=== PATIENT | female | born 1940 | race African-American/Black ===

== ENCOUNTER 2018-09-26 17:27 | Emergency (ER) | payer MEDICAID, MEDICARE ==
[~2018-09-26] VITALS: Ht 170.2 cm; Wt 70.5 kg
[2018-09-26] MEDS ORDERED: METO25 PO (17:55)
[2018-09-26] MEDS ORDERED: ACETAMINOPHEN 500 MG TABLET PO ONE (18:00)
[2018-09-26] MEDS ORDERED: AmLODIPine BESYLATE 5 MG TABLET PO ONE (20:30)
[2018-09-26] MEDS ORDERED: KETOROLAC TROMETHAMINE 60 MG/2 ML VIAL IM ONE (20:30)
[2018-09-26 20:41] VITALS: BP 162/94
== END 2018-09-26 20:45 | disposition home or self-care (01) ==
LOC: EMS 17:27
DX: S93.602A Unspecified sprain of left foot, initial encounter (principal); I10 Essential (primary) hypertension; W54.1XXA Struck by dog, initial encounter; Y93.01 Activity, walking, marching and hiking; Y92.89 Other specified places as the place of occurrence of the external cause; Y99.8 Other external cause status
CPT/HCPCS: 73630; 96372; 99283; J1885

== ENCOUNTER 2018-11-19 11:14 | Emergency (ER) | payer MEDICAID ==
[~2018-11-19] VITALS: Ht 162.6 cm; Wt 72.7 kg
[~2018-11-19 11:14] MED LIST: METO25 PO
[2018-11-19] MEDS ORDERED: LOVA20 PO (11:20)
[2018-11-19] MEDS ORDERED: PRAMOXINE HCL/BENZYL ALCOHOL 1% 35 GM GEL TP ONE (12:45)
[2018-11-19] MEDS ORDERED: HYDROCORTISONE 2.5% 30 GM CREAM TP ONE (12:45)
[2018-11-19] MEDS ORDERED: DiphenhydrAMINE HCL 25 MG CAPSULE PO ONE (12:45)
[2018-11-19 12:58] VITALS: BP 141/82
== END 2018-11-19 13:33 | disposition home or self-care (01) ==
LOC: EMS 11:15
DX: S40.862A Insect bite (nonvenomous) of left upper arm, initial encounter (principal); S00.262A Insect bite (nonvenomous) of left eyelid and periocular area, initial encounter; I10 Essential (primary) hypertension; E78.00 Pure hypercholesterolemia, unspecified; R21 Rash and other nonspecific skin eruption; Z91.040 Latex allergy status; W57.XXXA Bitten or stung by nonvenomous insect and other nonvenomous arthropods, initial encounter; Y93.89 Activity, other specified; Y92.89 Other specified places as the place of occurrence of the external cause; Y99.8 Other external cause status